=== PATIENT | female | born 1965 | race Caucasian/White ===

== ENCOUNTER 2020-10-30 06:15 | Day surgery (SDC) | payer BC ==
[2020-10-26 11:01] VITALS: BMI 20.5
[2020-10-30] MEDS ORDERED: GENTAMICIN SO4 80 MG/2 ML VIAL ONE (07:13)
[2020-10-30] MEDS ORDERED: ceFAZolin SODIUM 1 GM VIAL ONE ×3 (07:13→11:58)
[2020-10-30] MEDS ORDERED: LIDOCAINE HCL/PF 2% SDV 5ML VIAL ONE (07:16)
[2020-10-30] MEDS ORDERED: MIDAZOLAM HCL 2 MG/2 ML SINGLE DOSE VIAL ONE (07:16)
[2020-10-30] MEDS ORDERED: KETOROLAC TROMETHAMINE 30 MG/1 ML VIAL ONE (07:16)
[2020-10-30] MEDS ORDERED: PROPOFOL 20 ML ONE ×4 (07:16→12:00)
[2020-10-30] MEDS ORDERED: LIDOCAINE HCL 2% JELLY (5 ML/TUBE) ONE (07:16)
[2020-10-30] MEDS ORDERED: ONDANSETRON 4 MG/2 ML VIAL ONE (07:16)
[2020-10-30] MEDS ORDERED: SUCCINYLCHOLINE CHLORIDE 200 MG/10 ML SYRINGE ONE (07:16)
[2020-10-30] MEDS ORDERED: DEXAMETHASONE SOD PHOSPHATE 4 MG/1 ML VIAL ONE (07:16)
[2020-10-30] MEDS ORDERED: BUPIVACAINE LIPOSOME/PF (EXPAREL) 266 MG/20 ML VIAL ONE (07:50)
[2020-10-30] MEDS ORDERED: BUPIVACAINE HCL/PF 0.25% (2.5MG/ML) 10 ML VIAL ONE (07:52)
[2020-10-30] MEDS ORDERED: fentaNYL CITRATE 250 MCG/5 ML VIAL ONE (07:53)
[2020-10-30] MEDS ORDERED: ROCURONIUM BROMIDE 50 MG/5 ML SYRINGE ONE (07:53)
[2020-10-30] MEDS ORDERED: NEOSTIGMINE METHYLSULFATE 0.5 MG/1 ML - 10 ML MDV ONE (11:57)
[2020-10-30] MEDS ORDERED: PROMETHAZINE HCL 25 MG/1 ML VIAL IVPUSH PRN (12:34)
[2020-10-30] MEDS ORDERED: ONDANSETRON 4 MG/2 ML VIAL IVPUSH PRN (12:34)
[2020-10-30] MEDS ORDERED: oxyCODONE HCL 5 MG TABLET PO PRN ×4 (12:34→12:48)
[2020-10-30] MEDS ORDERED: ONDANSETRON 4 MG/2 ML VIAL IVPB PRN (12:48)
[2020-10-30] MEDS ORDERED: LACTATED RINGERS SOLUTION 1,000 ML IV SCH (13:00)
[2020-10-30] MEDS ORDERED: oxyCODONE HCL 5 MG TABLET ONE (13:35)
[2020-10-30 15:32] VITALS: BP 110/72; PULSE 55; TEMP 98.2
== END 2020-10-30 15:20 | disposition home or self-care (01) ==
LOC: FASU 06:15
PROVIDERS: ATTEND Plastic Surgery
PROC: 0HRV0JZ Replacement of Bilateral Breast with Synthetic Substitute, Open Approach (ICD-10-PCS; 2020-10-30)
PROC: 0HPU0JZ Removal of Synthetic Substitute from Left Breast, Open Approach (ICD-10-PCS; principal; 2020-10-30 08:23)
PROC: 0HPT0JZ Removal of Synthetic Substitute from Right Breast, Open Approach (ICD-10-PCS; 2020-10-30 08:23)
DX: T85.41XA Breakdown (mechanical) of breast prosthesis and implant, initial encounter (principal); Y82.8 Other medical devices associated with adverse incidents; Y92.9 Unspecified place or not applicable
CPT/HCPCS: 19342; L8600; 81025; 88300-TC; 88304-TC; 88305-TC; 94760